=== PATIENT | male | born 1940 | race Caucasian/White ===

== ENCOUNTER 2019-03-12 12:51 | Inpatient (IN) | payer OTHER ==
[2019-03-12] MEDS: ALBUTEROL 0.083% (NEB) 2.5 MG/3 ML AMP NEB ×2 (14:16→15:59)
[2019-03-12] MEDS: IPRATROPIUM (NEB) 0.5 MG/2.5 ML AMP NEB ×2 (14:16→16:00)
[2019-03-12] MEDS: ACETAMINOPHEN 325 MG TAB PO ×2 (15:57→21:52)
[2019-03-12] MEDS: LEVOFLOXACIN 500MG/D5W (PMX) 100 ML IVPB (16:39)
[2019-03-12 16:45] LABS: ADD MAN DIFF? NO
[2019-03-12 16:51] LABS: WHITE BLOOD COUNT 21.7 10^3/ul (4.8-10.8)
[2019-03-12 16:51] LABS: BASOPHIL # 0.1 10^3/ul (0.0-0.1); BASOPHILS % 0.4 % (0.0-2.0); HEMATOCRIT 41.5 % (42.0-52.0); LYMPHOCYTES # 2.1 10^3/ul (0.8-2.9); LYMPHOCYTES % 9.7 % (15.0-51.0); MEAN CORPUSCULAR HEMOGLOBIN 30.7 pg (29.0-33.0); MEAN CORPUSCULAR HGB CONC 33.7 g/dl (32.0-37.0); MEAN PLATELET VOLUME 11.7 fl (7.4-10.4); MONOCYTE # 1.3 10^3/ul (0.3-0.9); MONOCYTES % 5.9 % (0.0-11.0); NEUTROPHIL # 18.1 10^3/ul (1.6-7.5); NEUTROPHILS % 83.3 % (39.0-77.0); PLATELET COUNT 196 10^3/UL (140-415); RED BLOOD COUNT 4.56 10^6/ul (4.70-6.10); RED CELL DISTRIBUTION WIDTH 13.2 % (11.5-14.5)
[2019-03-12 17:08] LABS: ALANINE AMINOTRANSFERASE 27 IU/L (13-69); ALBUMIN 4.3 g/dl (3.3-4.9); ALBUMIN/GLOBULIN RATIO 1.26; ALKALINE PHOSPHATASE 71 IU/L (42-121); ANION GAP 12 (5-13); ASPARTATE AMINO TRANSFERASE 33 IU/L (15-46); BILIRUBIN,INDIRECT 2.1 mg/dl (0-1.1); BILIRUBIN,TOTAL 2.1 mg/dl (0.2-1.3); BLOOD UREA NITROGEN 22 mg/dl (7-20); CALCIUM 8.9 mg/dl (8.4-10.2); CARBON DIOXIDE 24 mmol/L (21-31); CHLORIDE 102 mmol/L (97-110); CREATININE 1.02 mg/dl (0.61-1.24); GLUCOSE 139 mg/dl (70-220); POTASSIUM 3.5 mmol/L (3.5-5.1); SODIUM 138 mmol/L (135-144); TOTAL PROTEIN 7.7 g/dl (6.1-8.1)
[2019-03-12] MEDS: LORAZEPAM 0.5 MG TAB PO (18:59)
[2019-03-12] MEDS ORDERED: ONDANSETRON 4 MG INJ IV (21:00)
[2019-03-12 21:05] LABS: ADD UMIC NO; UR ASCORBIC ACID NEGATIVE (NEGATIVE); UR BILIRUBIN (Dip) NEGATIVE (NEGATIVE); UR BLOOD (Dip) NEGATIVE (NEGATIVE); UR CLARITY CLEAR (CLEAR); UR COLOR YELLOW (YELLOW); UR GLUCOSE (Dip) NEGATIVE (NEGATIVE); UR KETONES (Dip) NEGATIVE (NEGATIVE); UR LEUKOCYTE ESTERASE (Dip) NEGATIVE Leu/ul (NEGATIVE); UR NITRITE (Dip) NEGATIVE (NEGATIVE); UR SPECIFIC GRAVITY (Dip) 1.024 (1.003-1.030); UR TOTAL PROTEIN (Dip) NEGATIVE (NEGATIVE); UR UROBILINOGEN (Dip) NEGATIVE (NEGATIVE)
[2019-03-13] MEDS: IPRATROPIUM (NEB) 0.5 MG/2.5 ML AMP HHN ×2 (00:41→05:20)
[2019-03-13] MEDS: LEVALBUTEROL (NEB) 0.63 MG/3 ML AMP HHN ×2 (00:41→05:20)
[2019-03-13] MEDS: ACETAMINOPHEN 325 MG TAB PO ×2 (05:30→20:48)
[2019-03-13] MEDS ORDERED: ONDANSETRON 4 MG INJ IV (08:30)
[2019-03-13] MEDS ORDERED: NACL 0.9% 3 ML SYG IV (08:30)
[2019-03-13] MEDS: SOD CHLORIDE 0.9% 1,000 ML IV (08:59)
[2019-03-13] MEDS: AMLODIPINE 10 MG TAB PO (08:59)
[2019-03-13] MEDS: ATORVASTATIN 20 MG TAB PO (08:59)
[2019-03-13] MEDS: BENAZEPRIL 40 MG TAB PO (08:59)
[2019-03-13 10:01] LABS: ADD MAN DIFF? NO
[2019-03-13] MEDS: HEPARIN 5,000 UNIT/1 ML VIAL SC ×2 (10:02→20:52)
[2019-03-13] MEDS: FLUTICASONE 0.05% 16 GM NAS SPRAY NASAL ×2 (10:03→20:47)
[2019-03-13 10:07] LABS: ABNORMAL IP MESSAGE 1; BASOPHIL # 0.1 10^3/ul (0.0-0.1); BASOPHILS % 0.3 % (0.0-2.0); HEMATOCRIT 39.9 % (42.0-52.0); HEMOGLOBIN 13.3 g/dl (14.0-18.0); LYMPHOCYTES # 1.4 10^3/ul (0.8-2.9); LYMPHOCYTES % 6.7 % (15.0-51.0); MEAN CORPUSCULAR HEMOGLOBIN 30.3 pg (29.0-33.0); MEAN CORPUSCULAR HGB CONC 33.3 g/dl (32.0-37.0); MEAN CORPUSCULAR VOLUME 90.9 fl (82.0-101.0); MEAN PLATELET VOLUME 11.9 fl (7.4-10.4); MONOCYTE # 0.8 10^3/ul (0.3-0.9); MONOCYTES % 3.7 % (0.0-11.0); NEUTROPHIL # 18.1 10^3/ul (1.6-7.5); NEUTROPHILS % 87.5 % (39.0-77.0); PLATELET COUNT 181 10^3/UL (140-415); POSITIVE DIFF @See below; RED BLOOD COUNT 4.39 10^6/ul (4.70-6.10); RED CELL DISTRIBUTION WIDTH 13.5 % (11.5-14.5)
[2019-03-13 10:07] LABS: WHITE BLOOD COUNT 20.8 10^3/ul (4.8-10.8)
[2019-03-13] MEDS: ALBUTEROL/IPRATROPIUM (NEB) 3 ML AMP HHN (10:24)
[2019-03-13 10:27] LABS: ALANINE AMINOTRANSFERASE 19 IU/L (13-69); ALBUMIN 3.5 g/dl (3.3-4.9); ALBUMIN/GLOBULIN RATIO 1.06; ALKALINE PHOSPHATASE 66 IU/L (42-121); ANION GAP 10 (5-13); ASPARTATE AMINO TRANSFERASE 35 IU/L (15-46); BILIRUBIN,INDIRECT 2.2 mg/dl (0-1.1); BILIRUBIN,TOTAL 2.2 mg/dl (0.2-1.3); BLOOD UREA NITROGEN 24 mg/dl (7-20); CALCIUM 8.7 mg/dl (8.4-10.2); CARBON DIOXIDE 24 mmol/L (21-31); CHLORIDE 102 mmol/L (97-110); CREATININE 1.07 mg/dl (0.61-1.24); GLUCOSE 142 mg/dl (70-220); POTASSIUM 3.5 mmol/L (3.5-5.1); SODIUM 136 mmol/L (135-144); TOTAL PROTEIN 6.8 g/dl (6.1-8.1)
[2019-03-13 11:59] LABS: AADO2 Arterial 66.8 mmHg (7.0-24.0); Allen Test ACCEPTAB; Arterial Base Excess -0.2 mmol/L (-3.0-3); Arterial Blood Gas Oxygen Sat 89.1 mmHG (95.0-100.0); Arterial COHb 0.2 % (0.0-3.0); Arterial Fraction of Oxyhgb 88.7 % (93.0-99.0); Arterial HCO3 21.4 mmol/L (22.0-26.0); Arterial MetHb 0.3 % (0.0-1.5); Arterial pCO2 27.6 mmhg (35-45); MODE ROOM AIR; Site Right Radial
[2019-03-13] MEDS: predniSONE 20 MG TAB PO (15:07)
[2019-03-13] MEDS: LEVOFLOXACIN 500MG/D5W (PMX) 100 ML IVPB (15:07)
[2019-03-13] MEDS: GUAIFENESIN/DM (SR) TAB PO (20:47)
[2019-03-13] MEDS: MONTELUKAST 10 MG TAB PO (20:47)
[2019-03-13] MEDS ORDERED: RANITIDINE 150 MG TAB PO (21:00)
[2019-03-13] MEDS ORDERED: FUROSEMIDE 20 MG INJ (22:52)
[2019-03-14 06:23] LABS: ADD MAN DIFF? NO
[2019-03-14] MEDS: PANTOPRAZOLE (EC) 40 MG TAB PO (06:27)
[2019-03-14 06:28] LABS: BASOPHILS % 0.1 % (0.0-2.0); HEMATOCRIT 39.9 % (42.0-52.0); HEMOGLOBIN 13.5 g/dl (14.0-18.0); LYMPHOCYTES # 1.1 10^3/ul (0.8-2.9); LYMPHOCYTES % 6.2 % (15.0-51.0); MEAN CORPUSCULAR HEMOGLOBIN 30.2 pg (29.0-33.0); MEAN CORPUSCULAR HGB CONC 33.8 g/dl (32.0-37.0); MEAN CORPUSCULAR VOLUME 89.3 fl (82.0-101.0); MEAN PLATELET VOLUME 11.9 fl (7.4-10.4); MONOCYTE # 0.5 10^3/ul (0.3-0.9); MONOCYTES % 2.9 % (0.0-11.0); NEUTROPHIL # 15.3 10^3/ul (1.6-7.5); NEUTROPHILS % 89.9 % (39.0-77.0); PLATELET COUNT 189 10^3/UL (140-415); POSITIVE DIFF @See below; RED BLOOD COUNT 4.47 10^6/ul (4.70-6.10); RED CELL DISTRIBUTION WIDTH 13.2 % (11.5-14.5)
[2019-03-14 06:59] LABS: ANION GAP 7 (5-13); BLOOD UREA NITROGEN 19 mg/dl (7-20); CALCIUM 8.9 mg/dl (8.4-10.2); CARBON DIOXIDE 25 mmol/L (21-31); CHLORIDE 106 mmol/L (97-110); CREATININE 0.82 mg/dl (0.61-1.24); GLUCOSE 158 mg/dl (70-220); MAGNESIUM 2.2 mg/dl (1.7-2.5); PHOSPHORUS 2.6 mg/dl (2.5-4.9); POTASSIUM 3.7 mmol/L (3.5-5.1); SODIUM 138 mmol/L (135-144)
[2019-03-14] MEDS: AMLODIPINE 10 MG TAB PO (07:58)
[2019-03-14] MEDS: FLUTICASONE 0.05% 16 GM NAS SPRAY NASAL ×2 (07:58→21:18)
[2019-03-14] MEDS: GUAIFENESIN/DM (SR) TAB PO ×2 (07:58→21:18)
[2019-03-14] MEDS: BENAZEPRIL 40 MG TAB PO (07:59)
[2019-03-14] MEDS: predniSONE 20 MG TAB PO (07:59)
[2019-03-14] MEDS: ATORVASTATIN 20 MG TAB PO (07:59)
[2019-03-14] MEDS: HEPARIN 5,000 UNIT/1 ML VIAL SC ×2 (08:05→21:25)
[2019-03-14 09:01] LABS: ANISOCYTOSIS 2+ (0-0); BAND NEUTROPHILS #M 2.5 10^3/ul (0.0-0.6); BAND NEUTROPHILS % (M) 15 % (0-4); GIANT THROMBO% (M) 4 % (0-0); HYPOCHROMASIA 1+ (0-0); LYMPHOCYTES #M 0.8 10^3/ul (0.8-2.9); LYMPHOCYTES % (M) 5 % (15-51); MICROCYTOSIS 1+ (0-0); MONOCYTE #M 0.6 10^3/ul (0.3-0.9); MONOCYTES % (M) 4 % (0-11); PLATELET ESTIMATE NORMAL; SEG NEUT #M 13.3 10^3/ul (1.6-7.5); SEGMENTED NEUTROPHILS (M) % 76 % (39-77); SMUDGE%M 7 % (0-0)
[2019-03-14 13:11] LABS: B-TYPE NATRIURETIC PEPTIDE 1190 PG/ML (0-450)
[2019-03-14] MEDS: LEVOFLOXACIN 500MG/D5W (PMX) 100 ML IVPB (15:06)
[2019-03-14] MEDS: METHYLPREDNISOLONE 40 MG INJ IV ×2 (15:06→21:35)
[2019-03-14] MEDS: MONTELUKAST 10 MG TAB PO (21:18)
[2019-03-15] MEDS: ALBUTEROL/IPRATROPIUM (NEB) 3 ML AMP HHN (04:32)
[2019-03-15] MEDS: PANTOPRAZOLE (EC) 40 MG TAB PO (06:39)
[2019-03-15] MEDS: METHYLPREDNISOLONE 40 MG INJ IV ×3 (06:39→21:55)
[2019-03-15] MEDS: AMLODIPINE 10 MG TAB PO (08:43)
[2019-03-15] MEDS: ATORVASTATIN 20 MG TAB PO (08:43)
[2019-03-15] MEDS: BENAZEPRIL 40 MG TAB PO (08:43)
[2019-03-15] MEDS: GUAIFENESIN/DM (SR) TAB PO ×2 (08:43→21:54)
[2019-03-15] MEDS: FLUTICASONE 0.05% 16 GM NAS SPRAY NASAL ×2 (08:44→21:00)
[2019-03-15] MEDS: HEPARIN 5,000 UNIT/1 ML VIAL SC ×2 (08:47→22:06)
[2019-03-15] MEDS: LEVOFLOXACIN 500MG/D5W (PMX) 100 ML IVPB (15:51)
[2019-03-15] MEDS: AZITHROMYCIN 500 MG TAB PO (15:51)
[2019-03-15] MEDS: METOPROLOL 50 MG TAB PO (21:54)
[2019-03-15] MEDS: MONTELUKAST 10 MG TAB PO (21:54)
[2019-03-16 00:57] LABS: CREATINE KINASE 124 IU/L (23-200)
[2019-03-16 01:08] LABS: CK INDEX 2.6
[2019-03-16 01:24] LABS: TROPONIN-I < 0.012 ng/ml (0.000-0.120)
[2019-03-16] MEDS: METHYLPREDNISOLONE 40 MG INJ IV ×2 (05:59→17:18)
[2019-03-16] MEDS: PANTOPRAZOLE (EC) 40 MG TAB PO (05:59)
[2019-03-16 07:58] LABS: ADD MAN DIFF? NO
[2019-03-16 08:11] LABS: BASOPHIL # 0.1 10^3/ul (0.0-0.1); BASOPHILS % 0.3 % (0.0-2.0); HEMATOCRIT 43.8 % (42.0-52.0); HEMOGLOBIN 14.7 g/dl (14.0-18.0); LYMPHOCYTES # 2.2 10^3/ul (0.8-2.9); LYMPHOCYTES % 11.4 % (15.0-51.0); MEAN CORPUSCULAR HEMOGLOBIN 29.8 pg (29.0-33.0); MEAN CORPUSCULAR HGB CONC 33.6 g/dl (32.0-37.0); MEAN CORPUSCULAR VOLUME 88.7 fl (82.0-101.0); MEAN PLATELET VOLUME 12.3 fl (7.4-10.4); MONOCYTE # 0.7 10^3/ul (0.3-0.9); MONOCYTES % 3.7 % (0.0-11.0); NEUTROPHIL # 15.5 10^3/ul (1.6-7.5); NEUTROPHILS % 81.6 % (39.0-77.0); PLATELET COUNT 292 10^3/UL (140-415); RED BLOOD COUNT 4.94 10^6/ul (4.70-6.10); RED CELL DISTRIBUTION WIDTH 13.2 % (11.5-14.5)
[2019-03-16 08:11] LABS: WHITE BLOOD COUNT 18.9 10^3/ul (4.8-10.8)
[2019-03-16 08:22] LABS: CREATINE KINASE 95 IU/L (23-200)
[2019-03-16 08:24] LABS: CHOLESTEROL 158 mg/dl (100-200)
[2019-03-16 08:24] LABS: CHOL/HDL RATIO 4.1 RATIO; HDL CHOLESTEROL 38 mg/dl (31-75); LDL CHOLESTEROL,CALCULATED 93 mg/dl; TRIGLYCERIDES 134 mg/dl (0-149)
[2019-03-16 08:25] LABS: ANION GAP 11 (5-13); BLOOD UREA NITROGEN 26 mg/dl (7-20); CARBON DIOXIDE 24 mmol/L (21-31); CHLORIDE 106 mmol/L (97-110); CREATININE 0.76 mg/dl (0.61-1.24); GLUCOSE 127 mg/dl (70-220); POTASSIUM 4.2 mmol/L (3.5-5.1); SODIUM 141 mmol/L (135-144)
[2019-03-16 08:31] LABS: CK INDEX 3.3; TROPONIN-I < 0.012 ng/ml (0.000-0.120)
[2019-03-16 08:32] LABS: CK-MB 3.12 ng/ml (0.0-2.4)
[2019-03-16] MEDS: ATORVASTATIN 20 MG TAB PO (09:22)
[2019-03-16] MEDS: METOPROLOL 50 MG TAB PO ×2 (09:22→21:26)
[2019-03-16] MEDS: GUAIFENESIN/DM (SR) TAB PO ×2 (09:22→21:26)
[2019-03-16] MEDS: BENAZEPRIL 40 MG TAB PO (09:23)
[2019-03-16] MEDS: FLUTICASONE 0.05% 16 GM NAS SPRAY NASAL ×2 (09:23→21:25)
[2019-03-16] MEDS: AZITHROMYCIN 500 MG TAB PO (09:23)
[2019-03-16] MEDS: FUROSEMIDE 20 MG INJ IV (09:23)
[2019-03-16] MEDS: AMLODIPINE 10 MG TAB PO (09:23)
[2019-03-16] MEDS: HEPARIN 5,000 UNIT/1 ML VIAL SC ×2 (10:05→21:31)
[2019-03-16 12:51] LABS: CREATINE KINASE 85 IU/L (23-200)
[2019-03-16 13:05] LABS: CK INDEX 3.2; TROPONIN-I < 0.012 ng/ml (0.000-0.120)
[2019-03-16 13:16] LABS: CK-MB 2.68 ng/ml (0.0-2.4)
[2019-03-16] MEDS: LEVOFLOXACIN 500MG/D5W (PMX) 100 ML IVPB (15:23)
[2019-03-16] MEDS: BENAZEPRIL 20 MG TAB PO (21:26)
[2019-03-16] MEDS: MONTELUKAST 10 MG TAB PO (21:26)
[2019-03-17] MEDS: traZODone 50 MG TAB PO (00:27)
[2019-03-17] MEDS: PANTOPRAZOLE (EC) 40 MG TAB PO (06:27)
[2019-03-17] MEDS: METHYLPREDNISOLONE 40 MG INJ IV ×2 (06:27→17:16)
[2019-03-17] MEDS: METOPROLOL 50 MG TAB PO (08:39)
[2019-03-17] MEDS: AZITHROMYCIN 500 MG TAB PO (08:39)
[2019-03-17] MEDS: AMLODIPINE 10 MG TAB PO (08:40)
[2019-03-17] MEDS: BENAZEPRIL 40 MG TAB PO ×2 (08:40→20:41)
[2019-03-17] MEDS: ATORVASTATIN 20 MG TAB PO (08:40)
[2019-03-17] MEDS: FUROSEMIDE 20 MG INJ IV (08:41)
[2019-03-17] MEDS: GUAIFENESIN/DM (SR) TAB PO ×2 (08:41→20:41)
[2019-03-17] MEDS: FLUTICASONE 0.05% 16 GM NAS SPRAY NASAL ×2 (08:41→20:42)
[2019-03-17] MEDS: HEPARIN 5,000 UNIT/1 ML VIAL SC ×2 (08:44→21:02)
[2019-03-17] MEDS: IPRATROPIUM (NEB) 0.5 MG/2.5 ML AMP HHN (14:36)
[2019-03-17] MEDS: LEVALBUTEROL (NEB) 0.63 MG/3 ML AMP HHN (14:36)
[2019-03-17] MEDS: LEVOFLOXACIN 500MG/D5W (PMX) 100 ML IVPB (17:16)
[2019-03-17] MEDS: MONTELUKAST 10 MG TAB PO (20:41)
[2019-03-17] MEDS: METOPROLOL 25 MG TAB PO (20:42)
[2019-03-18] MEDS: LEVOFLOXACIN 500 MG TAB PO (05:13)
[2019-03-18] MEDS: PANTOPRAZOLE (EC) 40 MG TAB PO (05:13)
[2019-03-18] MEDS: FUROSEMIDE 20 MG INJ IV (08:27)
[2019-03-18] MEDS: GUAIFENESIN/DM (SR) TAB PO (08:28)
[2019-03-18] MEDS: AZITHROMYCIN 500 MG TAB PO (08:28)
[2019-03-18] MEDS: BENAZEPRIL 40 MG TAB PO (08:28)
[2019-03-18] MEDS: METOPROLOL 25 MG TAB PO (08:28)
[2019-03-18] MEDS: ATORVASTATIN 20 MG TAB PO (08:29)
[2019-03-18] MEDS: predniSONE 20 MG TAB PO (08:29)
[2019-03-18] MEDS: AMLODIPINE 10 MG TAB PO (08:29)
[2019-03-18] MEDS: HEPARIN 5,000 UNIT/1 ML VIAL SC (08:32)
[2019-03-18] MEDS: FLUTICASONE 0.05% 16 GM NAS SPRAY NASAL (08:33)
== END 2019-03-18 11:38 | disposition home or self-care (01) | DRG 871 ==
LOC: FTE 12:51 → TEL 20:57
DX: A41.9 Sepsis, unspecified organism (principal); J18.9 Pneumonia, unspecified organism; J96.01 Acute respiratory failure with hypoxia; J45.901 Unspecified asthma with (acute) exacerbation; I11.0 Hypertensive heart disease with heart failure; I50.9 Heart failure, unspecified; E78.5 Hyperlipidemia, unspecified; R94.31 Abnormal electrocardiogram [ECG] [EKG]; R00.8 Other abnormalities of heart beat
CPT/HCPCS: 36600; 71046; 71250; 80048; 80053; 80061; 81003; 82550; 82553; 82803; 83735; 83880; 84100; 84484; 85025; 87040-91; 87070; 87086; 93005; 93306; 94640; 94664; 96365; 99285-25

== ENCOUNTER 2019-04-26 10:01 | Emergency (ER) | payer OTHER ==
[2019-04-26 11:39] LABS: ADD MAN DIFF? NO
[2019-04-26 11:42] LABS: ABNORMAL IP MESSAGE 1; BASOPHIL # 0.1 10^3/ul (0.0-0.1); BASOPHILS % 0.7 % (0.0-2.0); EOSINOPHILS # 3.7 10^3/ul (0.0-0.5); EOSINOPHILS % 24.4 % (0.0-7.0); HEMATOCRIT 41.7 % (42.0-52.0); HEMOGLOBIN 14.2 g/dl (14.0-18.0); LYMPHOCYTES # 2.4 10^3/ul (0.8-2.9); LYMPHOCYTES % 15.7 % (15.0-51.0); MEAN CORPUSCULAR HEMOGLOBIN 30.4 pg (29.0-33.0); MEAN CORPUSCULAR HGB CONC 34.1 g/dl (32.0-37.0); MEAN CORPUSCULAR VOLUME 89.3 fl (82.0-101.0); MEAN PLATELET VOLUME 10.9 fl (7.4-10.4); MONOCYTE # 0.7 10^3/ul (0.3-0.9); MONOCYTES % 4.9 % (0.0-11.0); PLATELET COUNT 253 10^3/UL (140-415); POSITIVE DIFF @See below; RED BLOOD COUNT 4.67 10^6/ul (4.70-6.10); RED CELL DISTRIBUTION WIDTH 13.8 % (11.5-14.5)
[2019-04-26 11:42] LABS: WHITE BLOOD COUNT 14.9 10^3/ul (4.8-10.8)
[2019-04-26 11:49] LABS: ADD UMIC NO; UR ASCORBIC ACID NEGATIVE (NEGATIVE); UR BILIRUBIN (Dip) NEGATIVE (NEGATIVE); UR BLOOD (Dip) NEGATIVE (NEGATIVE); UR CLARITY CLEAR (CLEAR); UR COLOR YELLOW (YELLOW); UR GLUCOSE (Dip) NEGATIVE (NEGATIVE); UR KETONES (Dip) NEGATIVE (NEGATIVE); UR LEUKOCYTE ESTERASE (Dip) NEGATIVE Leu/ul (NEGATIVE); UR NITRITE (Dip) NEGATIVE (NEGATIVE); UR SPECIFIC GRAVITY (Dip) 1.014 (1.003-1.030); UR TOTAL PROTEIN (Dip) NEGATIVE (NEGATIVE); UR UROBILINOGEN (Dip) NEGATIVE (NEGATIVE)
[2019-04-26 12:40] LABS: ALANINE AMINOTRANSFERASE 20 IU/L (13-69); ALBUMIN 4.3 g/dl (3.3-4.9); ALBUMIN/GLOBULIN RATIO 1.34; ALKALINE PHOSPHATASE 73 IU/L (42-121); ANION GAP 10 (5-13); ASPARTATE AMINO TRANSFERASE 26 IU/L (15-46); BLOOD UREA NITROGEN 12 mg/dl (7-20); CALCIUM 9.4 mg/dl (8.4-10.2); CARBON DIOXIDE 24 mmol/L (21-31); CHLORIDE 109 mmol/L (97-110); GLUCOSE 121 mg/dl (70-220); LIPASE 56 U/L (23-300); POTASSIUM 4.2 mmol/L (3.5-5.1); SODIUM 143 mmol/L (135-144); TOTAL PROTEIN 7.5 g/dl (6.1-8.1)
== END 2019-04-26 13:50 | disposition home or self-care (01) ==
LOC: E/R 10:01
DX: R10.84 Generalized abdominal pain (principal); I10 Essential (primary) hypertension; J45.909 Unspecified asthma, uncomplicated
CPT/HCPCS: 36415; 74176; 80053; 81003; 83690; 85025; 99284-25

== ENCOUNTER 2019-05-02 13:26 | Emergency (ER) | payer OTHER ==
[2019-05-02 16:43] LABS: WHITE BLOOD COUNT 15.1 10^3/ul (4.8-10.8)
[2019-05-02 16:43] LABS: ABNORMAL IP MESSAGE 1; HEMATOCRIT 42.9 % (42.0-52.0); HEMOGLOBIN 14.3 g/dl (14.0-18.0); MEAN CORPUSCULAR HGB CONC 33.3 g/dl (32.0-37.0); MEAN CORPUSCULAR VOLUME 89.9 fl (82.0-101.0); MEAN PLATELET VOLUME 11.3 fl (7.4-10.4); PLATELET COUNT 235 10^3/UL (140-415); POSITIVE DIFF @See below; RED BLOOD COUNT 4.77 10^6/ul (4.70-6.10); RED CELL DISTRIBUTION WIDTH 13.7 % (11.5-14.5)
[2019-05-02 16:44] LABS: ADD MAN DIFF? YES
[2019-05-02 16:48] LABS: ADD UMIC NO; UR ASCORBIC ACID NEGATIVE (NEGATIVE); UR BILIRUBIN (Dip) NEGATIVE (NEGATIVE); UR BLOOD (Dip) NEGATIVE (NEGATIVE); UR CLARITY CLEAR (CLEAR); UR COLOR YELLOW (YELLOW); UR GLUCOSE (Dip) NEGATIVE (NEGATIVE); UR KETONES (Dip) NEGATIVE (NEGATIVE); UR LEUKOCYTE ESTERASE (Dip) NEGATIVE Leu/ul (NEGATIVE); UR NITRITE (Dip) NEGATIVE (NEGATIVE); UR SPECIFIC GRAVITY (Dip) 1.019 (1.003-1.030); UR TOTAL PROTEIN (Dip) NEGATIVE (NEGATIVE); UR UROBILINOGEN (Dip) NEGATIVE (NEGATIVE)
[2019-05-02] MEDS: morphine 2 MG INJ IV (16:50)
[2019-05-02] MEDS: SOD CHLORIDE 0.9% 1,000 ML IV (16:50)
[2019-05-02] MEDS ORDERED: IOHEXOL 300MG/ML 150 ML BTL (17:00)
[2019-05-02] MEDS ORDERED: SOD CHLORIDE 0.9% 100 ML (17:00)
[2019-05-02 17:02] LABS: ALANINE AMINOTRANSFERASE 21 IU/L (13-69); ALBUMIN 4.1 g/dl (3.3-4.9); ALBUMIN/GLOBULIN RATIO 1.24; ALKALINE PHOSPHATASE 71 IU/L (42-121); ANION GAP 9 (5-13); ASPARTATE AMINO TRANSFERASE 24 IU/L (15-46); BILIRUBIN,INDIRECT 1.1 mg/dl (0-1.1); BILIRUBIN,TOTAL 1.1 mg/dl (0.2-1.3); BLOOD UREA NITROGEN 14 mg/dl (7-20); CALCIUM 9.3 mg/dl (8.4-10.2); CARBON DIOXIDE 25 mmol/L (21-31); CHLORIDE 105 mmol/L (97-110); CREATININE 1.02 mg/dl (0.61-1.24); GLUCOSE 110 mg/dl (70-220); POTASSIUM 3.6 mmol/L (3.5-5.1); SODIUM 139 mmol/L (135-144); TOTAL PROTEIN 7.4 g/dl (6.1-8.1)
[2019-05-02 17:20] LABS: ANISOCYTOSIS 1+ (0-0); BASOPHIL #M 0.1 10^3/ul (0.0-0.0); BASOPHILS % (M) 1 % (0-2); EOSINOPHILS % (M) 34 % (0-7); LYMPHOCYTES #M 2.5 10^3/ul (0.8-2.9); LYMPHOCYTES % (M) 17 % (15-51); MICROCYTOSIS 1+ (0-0); MONOCYTE #M 0.9 10^3/ul (0.3-0.9); MONOCYTES % (M) 6 % (0-11); PLATELET ESTIMATE NORMAL; POLYCHROMASIA 1+ (0-0); SEGMENTED NEUTROPHILS (M) % 42 % (39-77); SMUDGE%M 4 % (0-0)
== END 2019-05-02 19:16 | disposition home or self-care (01) ==
LOC: E/R 13:26
DX: K52.9 Noninfective gastroenteritis and colitis, unspecified (principal); J45.909 Unspecified asthma, uncomplicated; I10 Essential (primary) hypertension
CPT/HCPCS: 36415; 74177; 80053; 81003; 85025; 96374; 99285-25